=== PATIENT | male | born 1975 | race Caucasian/White ===

== ENCOUNTER 2020-03-11 14:57 | Emergency (ER) | payer BC ==
--- NOTE | 2020-03-11 15:41 | ED.PDOC ---
History of Present Illness - General Time Seen by Provider: 03/11/20 15:38 Source: patient Exam Limitations: no limitations - History of Present Illness Initial Comments: The patient is a 44-year-old male presented emergency room secondary to pain at the hyperthenar eminence of his right hand. Apparently the patient sustained a cut due to a welding injury about 4 weeks ago. He had significant infection throughout that time until 5 days ago when he was started on clindamycin. He reports it does look significantly better but there is still some significant pain and swelling there. No evidence of extending erythema. Range of motion is preserved.. No contractures. Sensation is preserved. Timing/Duration: other - 1 month Severity: moderate Improving Factors: nothing Worsening Factors: nothing Associated Symptoms: denies symptoms Home Medications: Ambulatory Orders Amoxicillin & Pot Clavulanate [Augmentin Tab] 875 mg PO BID #20 tab 03/11/20 Sulfa/Trimeth 800/160 (Ds) Tab [Bactrim DS Tab] 1 ea PO BID #20 tab 03/11/20 Review of Systems - Review of Systems Constitutional: States: no symptoms reported EENTM: States: no symptoms reported Respiratory: States: no symptoms reported Cardiology: States: no symptoms reported Gastrointestinal/Abdominal: States: no symptoms reported Genitourinary: States: no symptoms reported Musculoskeletal: States: no symptoms reported Skin: States: see HPI Neurological: States: no symptoms reported Endocrine: States: no symptoms reported All other Systems: No Change from Baseline Physical Exam - Physical Exam General Appearance: Alert, Comfortable, No apparent distress Eye Exam: bilateral normal Ears, Nose, Throat: hearing grossly normal Neck: full range of motion Respiratory: no respiratory distress, no accessory muscle use Cardiovascular/Chest: normal peripheral pulses, no edema Peripheral Pulses: radial,right: 2+, radial,left: 2+ Rectal Exam: deferred Extremity: normal range of motion, no pedal edema, normal capillary refill, other - See history of present illness Neurologic: fruit trimmer II-XII nml as tested, alert, normal mood/affect, oriented x 3 Skin Exam: normal color Progress - Progress Progress: 03/11/20 15:40 The patient is a 44-year-old male presenting to emergency room secondary to a cellulitis of the right palm. Is been present for about a month. It does appear to have at least partially responded to the clindamycin. There is nothing obvious to drain at this point. The patient is going to be switched over to Bactrim and Augmentin for broader spectrum coverage. He will be placed on 10 days of these antibiotics to provide better eradication of infection. ER warnings are given for any significant worsening. He does need to take these medications with food to prevent stomach upset. [email or web address] [id number] Departure - Departure Clinical Impression: Cellulitis of hand Disposition: Discharge to Home or Self Care Condition: Fair Instructions: Cellulitis (Skin Infection), Adult (DC) Diet: regular diet Activity: increase activity as tolerated Prescriptions: Amoxicillin & Pot Clavulanate [Augmentin Tab] 875 mg PO BID #20 tab Sulfa/Trimeth 800/160 (Ds) Tab [Bactrim DS Tab] 1 ea PO BID #20 tab Home Medications: Ambulatory Orders Amoxicillin & Pot Clavulanate [Augmentin Tab] 875 mg PO BID #20 tab 03/11/20 Sulfa/Trimeth 800/160 (Ds) Tab [Bactrim DS Tab] 1 ea PO BID #20 tab 03/11/20 Additional Instructions: The patient is a 44-year-old male presenting to emergency room secondary to a cellulitis of the right palm. Is been present for about a month. It does appear to have at least partially responded to the clindamycin. There is nothing obvious to drain at this point. The patient is going to be switched over to Bactrim and Augmentin for broader spectrum coverage. He will be placed on 10 days of these antibiotics to provide better eradication of infection. ER warnings are given for any significant worsening. He does need to take these m edications with food to prevent stomach upset.
[2020-03-11 15:45] VITALS: BP 109/76
[2020-03-11 15:52] VITALS: TEMP 98.5; O2SAT 97
== END 2020-03-11 15:52 | disposition home or self-care (01) ==
LOC: ER 14:57
DX: L03.113 Cellulitis of right upper limb (principal)

== ENCOUNTER → 2020-03-17 | Outpatient (CLI) | payer BC | LOC: YCFC.O 15:24 | PROVIDERS: ATTEND Family Medicine | DX: Z03.818 Encounter for observation for suspected exposure to other biological agents ruled out (principal); R05 Cough ==